=== PATIENT | male | born 1945 | race Caucasian/White ===

== ENCOUNTER 2016-05-21 18:38 | Inpatient (IN) | payer MEDICARE, OTHER ==
[~2016-05-21] VITALS: Ht 167.6 cm; Wt 70.3 kg
[2016-05-21] VITALS (140 sets, daily range): BP systolic 136; BP diastolic 86; PULSE 69; TEMP 97.9; O2SAT 91–100
[~2016-05-21 18:38] MED LIST: ADVAIR DISKUS 21 DSK IH; CIALIS20 MG PO; LEXAPRO20 MG PO; METFORMIN500 MG PO; SINGULAIR10 MG PO; TRAZADONE HYDR100 MG PO; ZOLPIDEM TARTRAT5 MG PO
[2016-05-21] MEDS ORDERED: DITROPAN 5MG TAB5 MG PO (18:57)
[2016-05-21] MEDS ORDERED: IMODIUM 2MG CAPS2 MG PO (18:58)
[2016-05-21] MEDS ORDERED: REVATIO20 MG PO (19:00)
[2016-05-21] MEDS ORDERED: LIPITOR 40MG TA40 MG PO (19:01)
[2016-05-21] MEDS ORDERED: LEVBID0.375 MG PO (19:01)
[2016-05-21 19:16] LABS: INR 1.1 (0.8-3.0)
[2016-05-21 19:18] LABS: PARTIAL THROMBOPLASTIN TIME 31.1 SECONDS (26.0-37.0)
[2016-05-21 19:24] LABS: ADJUSTED CALCIUM 9.5 mg/dL (8.4-10.2); ALANINE AMINOTRANSFERASE 77 U/L (21-72); ALBUMIN 3.9 gm/dL (3.5-5.0); ALKALINE PHOSPHATASE 116 U/L (50-136); ANION GAP 11 mmol/L (7-16); BASO % 0.6 % (0.0-2.0); BILIRUBIN,TOTAL 0.8 mg/dL (0.0-1.0); BLOOD UREA NITROGEN 16 mg/dL (9-20); CALCIUM 9.4 mg/dL (8.4-10.2); CARBON DIOXIDE 25 mmol/L (22-30); CHLORIDE 100 mmol/L (98-107); CREATININE, serum 1.18 mg/dL (0.66-1.25); EOS # 0.3 (0.0-0.7); GLUCOSE 289 mg/dL (74-106); GRAN # 4.7 (1.4-6.5); GRAN % 65.3 % (42.2-75.2); HEMOGLOBIN 14.4 g/dl (13.5-18.0); LYMPH # 1.6 (1.2-3.4); LYMPH % 22.4 % (20.0-51.0); MEAN CELL VOLUME 85 fl (80.0-100.0); MEAN CORPUSCULAR HEMOGLOBIN 31 pg (27.0-31.0); MEAN CORPUSCULAR HGB CONC 37 g/dl (33.0-37.0); MEAN PLATELET VOLUME 10.2 fl (7.4-10.4); MONO # 0.5 (0.1-0.6); MONO % 7.4 % (1.7-9.3); PLATELET COUNT 183 K/mm3 (130-400); POTASSIUM 4.2 mmol/L (3.4-5.0); REDCELL DISTRIBUTION WIDTH-CV 11.9 % (11.5-14.5); SODIUM 136 mmol/L (137-145); WHITE BLOOD COUNT 7.2 K/mm3 (4.8-10.8)
[2016-05-21 19:30] LABS: C-REACTIVE PROTEIN < 0.5 mg/dL (0.0-0.9)
[2016-05-21 19:35] LABS: TROPONIN-I < 0.012 ng/mL (0.000-0.034)
[2016-05-21 21:49] LABS: PHOSPHOROUS 3.2 mg/dL (2.5-4.5)
[2016-05-22] VITALS (692 sets, daily range): BP systolic 91–150; BP diastolic 52–96; PULSE 63–83; TEMP 97–100; O2SAT 91–100
[2016-05-22 06:20] LABS: ADJUSTED CALCIUM 9.2 mg/dL (8.4-10.2); ALANINE AMINOTRANSFERASE 62 U/L (21-72); ALBUMIN 3.1 gm/dL (3.5-5.0); ALKALINE PHOSPHATASE 82 U/L (50-136); ANION GAP 7 mmol/L (7-16); BILIRUBIN,TOTAL 0.5 mg/dL (0.0-1.0); BLOOD UREA NITROGEN 17 mg/dL (9-20); CALCIUM 8.5 mg/dL (8.4-10.2); CARBON DIOXIDE 25 mmol/L (22-30); CHLORIDE 106 mmol/L (98-107); CHOLESTEROL 98 mg/dL (120-200); CREATININE, serum 1.29 mg/dL (0.66-1.25); GLUCOSE 203 mg/dL (74-106); HDL CHOLESTEROL 31 mg/dL; LDL CHOLESTEROL 39 mg/dL; SODIUM 138 mmol/L (137-145); TOTAL PROTEIN 5.7 gm/dL (6.4-8.2); TRIGLYCERIDE 138 mg/dL
[2016-05-22 06:56] LABS: TROPONIN-I < 0.012 ng/mL (0.000-0.034)
[2016-05-23] VITALS (13 sets, daily range): BP systolic 100–133; BP diastolic 61–73; PULSE 62–77; TEMP 97.5–98
[2016-05-23 08:59] LABS: BASO % 0.4 % (0.0-2.0); EOS # 0.4 (0.0-0.7); EOS % 5.3 % (0-4.0); GRAN # 4.3 (1.4-6.5); GRAN % 60.6 % (42.2-75.2); HEMATOCRIT 37.7 % (42.0-52.0); HEMOGLOBIN 13.3 g/dl (13.5-18.0); LYMPH # 1.8 (1.2-3.4); LYMPH % 24.6 % (20.0-51.0); MEAN CELL VOLUME 89 fl (80.0-100.0); MEAN CORPUSCULAR HEMOGLOBIN 31 pg (27.0-31.0); MEAN CORPUSCULAR HGB CONC 35 g/dl (33.0-37.0); MEAN PLATELET VOLUME 10.5 fl (7.4-10.4); MONO # 0.6 (0.1-0.6); MONO % 8.8 % (1.7-9.3); PLATELET COUNT 166 K/mm3 (130-400); RED BLOOD COUNT 4.26 M/mm3 (4.20-5.60); REDCELL DISTRIBUTION WIDTH-CV 12.2 % (11.5-14.5); WHITE BLOOD COUNT 7.1 K/mm3 (4.8-10.8)
[2016-05-23 09:00] LABS: CALCIUM 8.7 mg/dL (8.4-10.2); CREATININE, serum 1.17 mg/dL (0.66-1.25); POTASSIUM 4.1 mmol/L (3.4-5.0)
[2016-05-23] MEDS ORDERED: LIPITOR 80MG80 MG PO (12:48)
[2016-05-23] MEDS ORDERED: PLAVIX 75MG TAB75 MG PO (12:49)
[2016-05-23] MEDS ORDERED: ASPIRIN E.C. 8181 MG PO (12:49)
== END 2016-05-23 17:23 | disposition home or self-care (01) | DRG 65 ==
LOC: COL.ER 18:38 → IMCU 20:03 → MEDICAL 05-22 18:48
PROVIDERS: Emergency Medicine; Internal Medicine; Nurse Practitioner Family
DX: I63.412 Cerebral infarction due to embolism of left middle cerebral artery (principal); G81.91 Hemiplegia, unspecified affecting right dominant side; R47.01 Aphasia; R47.02 Dysphasia; R20.9 Unspecified disturbances of skin sensation; K58.9 Irritable bowel syndrome, unspecified; E11.9 Type 2 diabetes mellitus without complications; Z87.891 Personal history of nicotine dependence; J45.909 Unspecified asthma, uncomplicated; F41.1 Generalized anxiety disorder
CPT/HCPCS: 99223-AI; 99239; A9585; G0378; G8978-GP; G8979-GP; G9162-GN; G9163-GN; G9654; J1650; J1815; J2060; J2250; J2270; J2704; J7030

== ENCOUNTER 2016-05-25 21:10 | Emergency (ER) | payer MEDICARE, OTHER, BC ==
[~2016-05-25] VITALS: Ht 167.6 cm; Wt 65.9 kg
[~2016-05-25 21:10] MED LIST changes: +ASPIRIN E.C. 8181 MG PO; +DITROPAN 5MG TAB5 MG PO; +IMODIUM 2MG CAPS2 MG PO; +LEVBID0.375 MG PO; +LIPITOR 40MG TA40 MG PO; +LIPITOR 80MG80 MG PO; +PLAVIX 75MG TAB75 MG PO; +REVATIO20 MG PO
[2016-05-25 21:14] VITALS: TEMP 98.7
[2016-05-25 21:55] LABS: BASO # 0.1 (0.0-0.2); BASO % 0.7 % (0.0-2.0); EOS # 0.5 (0.0-0.7); GRAN # 5.4 (1.4-6.5); GRAN % 60.9 % (42.2-75.2); HEMATOCRIT 40.5 % (42.0-52.0); HEMOGLOBIN 14.5 g/dl (13.5-18.0); LYMPH # 2.1 (1.2-3.4); LYMPH % 23.9 % (20.0-51.0); MEAN CELL VOLUME 87 fl (80.0-100.0); MEAN CORPUSCULAR HEMOGLOBIN 31 pg (27.0-31.0); MEAN CORPUSCULAR HGB CONC 36 g/dl (33.0-37.0); MONO # 0.7 (0.1-0.6); MONO % 8.2 % (1.7-9.3); PLATELET COUNT 193 K/mm3 (130-400); RED BLOOD COUNT 4.67 M/mm3 (4.20-5.60); REDCELL DISTRIBUTION WIDTH-CV 11.9 % (11.5-14.5); WHITE BLOOD COUNT 8.9 K/mm3 (4.8-10.8)
[2016-05-25 22:01] LABS: INR 1.1 (0.8-3.0); PROTHROMBIN TIME 11.8 SECONDS (9.7-12.8)
[2016-05-25 22:04] LABS: PARTIAL THROMBOPLASTIN TIME 32.9 SECONDS (26.0-37.0)
[2016-05-25 22:11] LABS: ADJUSTED CALCIUM 9.4 mg/dL (8.4-10.2); ALBUMIN 4.1 gm/dL (3.5-5.0); BILIRUBIN,TOTAL 0.9 mg/dL (0.0-1.0); CALCIUM 9.5 mg/dL (8.4-10.2); CREATININE, serum 1.13 mg/dL (0.66-1.25); POTASSIUM 4.1 mmol/L (3.4-5.0); TOTAL PROTEIN 7.3 gm/dL (6.4-8.2)
[2016-05-25 22:48] VITALS: BP 146/90; PULSE 78
== END 2016-05-25 22:50 | disposition short-term general hospital (02) ==
LOC: COL.ER 21:10
PROVIDERS: Emergency Medicine
DX: G45.9 Transient cerebral ischemic attack, unspecified (principal); I65.22 Occlusion and stenosis of left carotid artery; Z79.02 Long term (current) use of antithrombotics/antiplatelets; Z79.82 Long term (current) use of aspirin; E11.9 Type 2 diabetes mellitus without complications; Z87.891 Personal history of nicotine dependence
CPT/HCPCS: J1644

== ENCOUNTER 2016-10-09 10:15 | Outpatient (RCR) | payer MEDICARE, OTHER | END 2016-10-10 | disposition still patient (30) | LOC: WSOT | DX: I63.8 Other cerebral infarction (principal); M62.81 Muscle weakness (generalized) | CPT/HCPCS: G8984-GP; G8985-GP; G8986-GP; G8987-GO; G8988-GO ==

== ENCOUNTER 2016-10-23 08:25 | Outpatient (CLI) | payer MEDICARE, OTHER ==
[~2016-10-23] VITALS: Ht 167.7 cm; Wt 59.0 kg
[2016-10-23] MEDS ORDERED: DESYREL 100MG100 MG PO (08:57)
[2016-10-23] MEDS ORDERED: FLOMAX 0.40.4 MG/CAP PO (08:58)
[2016-10-23] MEDS ORDERED: MIRALAX PA17 GM/Dose PO (08:58)
[2016-10-23] MEDS ORDERED: COMPLETE SENIOR1 TA1 PO (08:59)
[2016-10-23] MEDS ORDERED: GLUCOPHAGE XR500 M1 PO (09:00)
[2016-10-23] MEDS ORDERED: METROGEL1% TOP (09:00)
[2016-10-23] MEDS ORDERED: MOTRIN 400400 MG/TAB PO (09:01)
[2016-10-23] MEDS ORDERED: LEVBID0.375 MG (09:02)
[2016-10-23] MEDS ORDERED: OMEGA-3 1000 MG1 CAP PO (09:03)
[2016-10-23] MEDS ORDERED: AMOXIL125 MG PO (09:04)
[2016-10-23 09:31] VITALS: BP 125/72; PULSE 69; TEMP 98.8
[2016-10-23 10:50] VITALS: BP 112/62; PULSE 70; TEMP 98
== END 2016-10-23 11:12 | disposition home or self-care (01) ==
LOC: COL.CAR 08:25
DX: I63.8 Other cerebral infarction (principal); I25.10 Atherosclerotic heart disease of native coronary artery without angina pectoris; E11.9 Type 2 diabetes mellitus without complications; J45.909 Unspecified asthma, uncomplicated; F41.9 Anxiety disorder, unspecified; F32.9 Major depressive disorder, single episode, unspecified; K52.9 Noninfective gastroenteritis and colitis, unspecified; G47.00 Insomnia, unspecified; Z79.01 Long term (current) use of anticoagulants; Z79.84 Long term (current) use of oral hypoglycemic drugs; Z87.891 Personal history of nicotine dependence; Z82.5 Family history of asthma and other chronic lower respiratory diseases; Z82.49 Family history of ischemic heart disease and other diseases of the circulatory system
CPT/HCPCS: 27124; C1764

== ENCOUNTER 2016-10-25 09:30 | Outpatient (RCR) | payer MEDICARE, OTHER ==
[~2016-10-25 09:30] MED LIST changes: +AMOXIL125 MG PO; +COMPLETE SENIOR1 TA1 PO; +DESYREL 100MG100 MG PO; +FLOMAX 0.40.4 MG/CAP PO; +GLUCOPHAGE XR500 M1 PO; +LEVBID0.375 MG; +METROGEL1% TOP; +MIRALAX PA17 GM/Dose PO; +MOTRIN 400400 MG/TAB PO; +OMEGA-3 1000 MG1 CAP PO
== END 2016-10-30 11:43 | disposition home or self-care (01) ==
LOC: WSOT 09:30
DX: I63.9 Cerebral infarction, unspecified (principal)
CPT/HCPCS: G8988-GO; G8989-GO

== ENCOUNTER → 2017-01-08 | Outpatient (CLI) | payer MEDICARE, OTHER | LOC: COL.RAD 11:28 | DX: M47.813 Spondylosis without myelopathy or radiculopathy, cervicothoracic region (principal); M41.83 Other forms of scoliosis, cervicothoracic region; Z86.73 Personal history of transient ischemic attack (TIA), and cerebral infarction without residual deficits | CPT/HCPCS: Q9967 ==

== ENCOUNTER 2017-01-11 09:15 | Outpatient (RCR) | payer MEDICARE, OTHER | END 2017-01-15 08:35 | LOC: WSPT 09:15 | DX: M25.512 Pain in left shoulder (principal); M54.5 Low back pain; G89.29 Other chronic pain | CPT/HCPCS: G0283-GP; G8984-GP; G8985-GP; G8986-GP ==

== ENCOUNTER → 2017-01-11 | Outpatient (CLI) | payer MEDICARE, OTHER | LOC: MHCPAIN 11:19 | DX: G89.29 Other chronic pain (principal); M47.817 Spondylosis without myelopathy or radiculopathy, lumbosacral region; M54.16 Radiculopathy, lumbar region; Z87.891 Personal history of nicotine dependence; Z79.82 Long term (current) use of aspirin; Z79.02 Long term (current) use of antithrombotics/antiplatelets | CPT/HCPCS: G0463 ==

== ENCOUNTER → 2017-01-24 | Outpatient (CLI) | payer MEDICARE, OTHER | LOC: MHCPAIN 10:34 | DX: Z53.8 Procedure and treatment not carried out for other reasons (principal) ==

== ENCOUNTER → 2017-03-15 | Outpatient (CLI) | payer MEDICARE, OTHER | LOC: MHCPAIN 09:02 | DX: G89.29 Other chronic pain (principal); M47.817 Spondylosis without myelopathy or radiculopathy, lumbosacral region; M54.2 Cervicalgia; Z87.891 Personal history of nicotine dependence | CPT/HCPCS: G0463 ==

== ENCOUNTER 2017-05-26 10:58 | Emergency (ER) | payer MEDICARE, OTHER ==
[~2017-05-26] VITALS: Ht 167.6 cm; Wt 62.7 kg
[2017-05-26 11:01] VITALS: BP 135/85
[2017-05-26] MEDS ORDERED: CALCIUM CARB W/1 TA1 PO (11:25)
[2017-05-26] MEDS ORDERED: AMOXICILLIN 8751 TAB PO (11:30)
[2017-05-26] MEDS ORDERED: TYLENOL W/COD1 UDTAB PO (11:30)
[2017-05-26] MEDS ORDERED: NORCO 325 MG-51 TAB PO ×2 (11:59→12:13)
[2017-05-26] MEDS ORDERED: BACTRIM DS 8001 TAB PO ×2 (11:59→12:13)
[2017-05-26] MEDS ORDERED: BACTROBAN15 GM TOP ×2 (11:59→12:13)
[2017-05-26 12:15] VITALS: PULSE 85; TEMP 98.4
== END 2017-05-26 12:16 | disposition home or self-care (01) ==
LOC: COL.ER 10:58
DX: L01.00 Impetigo, unspecified (principal); A46 Erysipelas; E11.9 Type 2 diabetes mellitus without complications; I10 Essential (primary) hypertension; I25.10 Atherosclerotic heart disease of native coronary artery without angina pectoris; E78.5 Hyperlipidemia, unspecified; Z86.73 Personal history of transient ischemic attack (TIA), and cerebral infarction without residual deficits; Z79.84 Long term (current) use of oral hypoglycemic drugs; Z79.82 Long term (current) use of aspirin; Z79.02 Long term (current) use of antithrombotics/antiplatelets

== ENCOUNTER → 2017-07-11 | Outpatient (CLI) | payer MEDICARE, OTHER ==
[~2017-07-11] MED LIST changes: +AMOXICILLIN 8751 TAB PO; +BACTRIM DS 8001 TAB PO; +BACTROBAN15 GM TOP; +CALCIUM CARB W/1 TA1 PO; +NORCO 325 MG-51 TAB PO; +TYLENOL W/COD1 UDTAB PO
== END ==
LOC: COL.CARD 09:44
DX: G51.4 Facial myokymia (principal); R55 Syncope and collapse

== ENCOUNTER 2017-11-09 12:17 | Observation (INO) | payer MEDICARE ==
[~2017-11-09] VITALS: Ht 167.6 cm; Wt 58.3 kg
[2017-11-09 13:13] LABS: BASO % 0.6 % (0.0-2.0); EOS # 0.5 (0.0-0.7); EOS % 7.6 % (0-4.0); GRAN # 4.5 (1.4-6.5); GRAN % 65.6 % (42.2-75.2); HEMOGLOBIN 12.5 g/dl (13.5-18.0); LYMPH # 1.1 (1.2-3.4); LYMPH % 15.4 % (20.0-51.0); MEAN CELL VOLUME 91 fl (80.0-100.0); MEAN CORPUSCULAR HEMOGLOBIN 32 pg (27.0-31.0); MEAN CORPUSCULAR HGB CONC 35 g/dl (33.0-37.0); MEAN PLATELET VOLUME 9.6 fl (7.4-10.4); MONO # 0.7 (0.1-0.6); MONO % 10.7 % (1.7-9.3); PLATELET COUNT 207 K/mm3 (130-400); RED BLOOD COUNT 3.91 M/mm3 (4.20-5.60); REDCELL DISTRIBUTION WIDTH-CV 12.7 % (11.5-14.5)
[2017-11-09 13:18] LABS: HEMATOCRIT 35.5 % (42.0-52.0)
[2017-11-09 13:21] LABS: INR 0.9 (0.8-3.0); PROTHROMBIN TIME 10.5 SECONDS (9.7-12.8)
[2017-11-09 13:23] LABS: PARTIAL THROMBOPLASTIN TIME 35.3 SECONDS (26.0-37.0)
[2017-11-09 13:27] LABS: ALANINE AMINOTRANSFERASE 58 U/L (21-72); ALBUMIN 3.7 gm/dL (3.5-5.0); ALKALINE PHOSPHATASE 126 U/L (50-136); ANION GAP 8 mmol/L (7-16); AST,SGOT 44 U/L (15-37); BILIRUBIN,TOTAL 0.4 mg/dL (0.0-1.0); BLOOD UREA NITROGEN 14 mg/dL (9-20); CALCIUM 8.6 mg/dL (8.4-10.2); CARBON DIOXIDE 25 mmol/L (22-30); CHLORIDE 102 mmol/L (98-107); CREATININE, serum 1.03 mg/dL (0.66-1.25); GLUCOSE 121 mg/dL (74-106); POTASSIUM 4.2 mmol/L (3.4-5.0); SODIUM 136 mmol/L (137-145); TOTAL PROTEIN 6.3 gm/dL (6.4-8.2)
[2017-11-09 13:38] LABS: TROPONIN-I < 0.012 ng/mL (0.000-0.034)
[2017-11-09 16:14] VITALS: BP 131/59; PULSE 64; TEMP 98.4
[2017-11-09 19:19] VITALS: BP 132/56; PULSE 66; TEMP 98.4
[2017-11-09 23:05] VITALS: BP 103/51; PULSE 60; TEMP 98.6
[2017-11-10 06:15] VITALS: BP 117/55; PULSE 59; TEMP 97.6
[2017-11-10 07:28] LABS: BASO % 0.4 % (0.0-2.0); EOS # 0.4 (0.0-0.7); EOS % 8.1 % (0-4.0); GRAN # 2.6 (1.4-6.5); GRAN % 51.9 % (42.2-75.2); HEMOGLOBIN 11.7 g/dl (13.5-18.0); LYMPH # 1.4 (1.2-3.4); LYMPH % 28.6 % (20.0-51.0); MEAN CELL VOLUME 93 fl (80.0-100.0); MEAN CORPUSCULAR HEMOGLOBIN 32 pg (27.0-31.0); MEAN CORPUSCULAR HGB CONC 34 g/dl (33.0-37.0); MEAN PLATELET VOLUME 9.6 fl (7.4-10.4); MONO # 0.5 (0.1-0.6); MONO % 10.8 % (1.7-9.3); PLATELET COUNT 189 K/mm3 (130-400); RED BLOOD COUNT 3.69 M/mm3 (4.20-5.60); REDCELL DISTRIBUTION WIDTH-CV 12.9 % (11.5-14.5)
[2017-11-10 07:35] LABS: HEMATOCRIT 34.3 % (42.0-52.0)
[2017-11-10 07:39] LABS: CALCIUM 8.6 mg/dL (8.4-10.2); CREATININE, serum 0.99 mg/dL (0.66-1.25); POTASSIUM 4.1 mmol/L (3.4-5.0)
[2017-11-10 11:41] VITALS: BP 122/62; PULSE 62; TEMP 98
[2017-11-10 16:17] VITALS: BP 132/65; PULSE 60; TEMP 98.4
[2017-11-11 04:50] VITALS: BP 119/57; PULSE 64; TEMP 97.9
[2017-11-11 07:25] VITALS: BP 104/61; PULSE 64; TEMP 97.8
== END 2017-11-11 10:45 | disposition home or self-care (01) ==
LOC: COL.ER 12:17 → MEDICAL 15:01
PROVIDERS: Emergency Medicine; Family Medicine
DX: I69.314 Frontal lobe and executive function deficit following cerebral infarction (principal); E78.5 Hyperlipidemia, unspecified; E11.9 Type 2 diabetes mellitus without complications; F32.9 Major depressive disorder, single episode, unspecified; D64.9 Anemia, unspecified; J45.20 Mild intermittent asthma, uncomplicated; Z88.1 Allergy status to other antibiotic agents; Z88.7 Allergy status to serum and vaccine; Z95.828 Presence of other vascular implants and grafts; Z79.02 Long term (current) use of antithrombotics/antiplatelets; Z79.82 Long term (current) use of aspirin; Z79.84 Long term (current) use of oral hypoglycemic drugs; Z87.891 Personal history of nicotine dependence
CPT/HCPCS: 99222-AI; 99232-AI; A9585; J1644; J7030

== ENCOUNTER → 2017-12-31 | Outpatient (CLI) | payer MEDICARE | LOC: SUN.DIA 12:29 | DX: E78.5 Hyperlipidemia, unspecified (principal); E11.9 Type 2 diabetes mellitus without complications | CPT/HCPCS: G0108 ==

== ENCOUNTER → 2018-01-14 | Outpatient (CLI) | payer MEDICARE | LOC: SUN.DIA 10:07 | DX: E11.9 Type 2 diabetes mellitus without complications (principal); E78.5 Hyperlipidemia, unspecified ==

== ENCOUNTER → 2018-02-12 | Outpatient (CLI) | payer MEDICARE | LOC: COL.RAD 09:38 | DX: M47.816 Spondylosis without myelopathy or radiculopathy, lumbar region (principal) ==

== ENCOUNTER → 2018-08-12 | Outpatient (CLI) | payer MEDICARE | LOC: MHCPAIN 12:42 | DX: G89.29 Other chronic pain (principal); M47.817 Spondylosis without myelopathy or radiculopathy, lumbosacral region; M53.3 Sacrococcygeal disorders, not elsewhere classified | CPT/HCPCS: G0463 ==

== ENCOUNTER → 2018-08-21 | Outpatient (CLI) | payer MEDICARE | LOC: MHCPAIN 08-18 10:57 | DX: M47.817 Spondylosis without myelopathy or radiculopathy, lumbosacral region (principal); M54.16 Radiculopathy, lumbar region ==

== ENCOUNTER → 2018-08-26 | Outpatient (CLI) | payer MEDICARE | LOC: MHCPAIN 13:14 | DX: G89.29 Other chronic pain (principal); M47.817 Spondylosis without myelopathy or radiculopathy, lumbosacral region; M54.16 Radiculopathy, lumbar region; M53.3 Sacrococcygeal disorders, not elsewhere classified | CPT/HCPCS: G0463 ==

== ENCOUNTER 2022-08-15 10:41 | Emergency (ER) | payer MEDICARE ==
[~2022-08-15] VITALS: Ht 165.1 cm; Wt 56.8 kg
[2022-08-15 10:41] VITALS: TEMP 98.5
[2022-08-15 12:17] LABS: ALBUMIN 4.1 gm/dL (3.4-4.8); BILIRUBIN,TOTAL 1.1 mg/dL (0.2-1.2); C-REACTIVE PROTEIN 0.14 mg/dL (0.00-0.50); CALCIUM 9.2 mg/dL (8.4-10.2); CREATININE, serum 1.34 mg/dL (0.72-1.25); POTASSIUM 4.2 mmol/L (3.5-4.5); TOTAL PROTEIN 6.9 gm/dL (6.2-8.1); TROPONIN-I 0.018 ng/mL (0.00-0.033)
[2022-08-15 12:21] LABS: BASO # 0.1 K/mm3 (0.0-0.2); BASO % 0.6 % (0.0-2.0); EOS # 0.6 K/mm3 (0.0-0.7); EOS % 6.6 % (0.0-4.0); GRAN # 6.1 K/mm3 (1.4-6.5); GRAN % 65.7 % (42.2-75.2); HEMATOCRIT 41.6 % (42.0-52.0); HEMOGLOBIN 14.4 g/dl (13.5-18.0); LYMPH # 1.6 K/mm3 (1.2-3.4); LYMPH % 17.6 % (20.0-51.0); MEAN CELL VOLUME 90 fl (80.0-100.0); MEAN CORPUSCULAR HEMOGLOBIN 31 pg (27-31); MEAN CORPUSCULAR HGB CONC 35 g/dl (33.0-37.0); MONO # 0.9 K/mm3 (0.1-0.6); MONO % 9.2 % (1.7-9.3); PLATELET COUNT 241 K/mm3 (130-400); RED BLOOD COUNT 4.62 M/mm3 (4.20-5.60); REDCELL DISTRIBUTION WIDTH-CV 12.2 % (11.5-14.5)
[2022-08-15 12:28] LABS: ERYTHROCYTE SEDIMENTATION RATE 4 mm/hr (0-30)
[2022-08-15 12:34] LABS: COLLECTION METHOD CLEAN CATCH
[2022-08-15 13:01] LABS: MUCOUS Present (NOT PRESENT); SQUAMOUS EPITHELIAL None Seen /hpf (0-10); URINE BACTERIA Rare /hpf (NONE SEEN); URINE RBC 0-2 /hpf (0-2)
[2022-08-15 13:02] LABS: URINE APPEARANCE Clear (CLEAR/HAZY); URINE BLOOD Negative (NEGATIVE); URINE COLOR Yellow (YELLOW); URINE GLUCOSE 3+ (NEGATIVE); URINE KETONE 2+ (NEGATIVE); URINE NITRATE Negative (NEGATIVE); URINE PROTEIN(semi-quant) Negative (NEGATIVE); URINE UROBILINOGEN 0.2 E.U/dL (0.2-1.0)
[2022-08-15] MEDS ORDERED: WALKER MC ×2 (15:24→15:25)
[2022-08-15 15:30] VITALS: BP 139/78; PULSE 70
== END 2022-08-15 15:30 | disposition home or self-care (01) ==
LOC: COL.ER 11:01
PROVIDERS: Emergency Medicine
DX: E11.9 Type 2 diabetes mellitus without complications (principal); R42 Dizziness and giddiness; R79.89 Other specified abnormal findings of blood chemistry; Z86.73 Personal history of transient ischemic attack (TIA), and cerebral infarction without residual deficits
CPT/HCPCS: J1885; J7030